=== PATIENT | male | born 1950 | race Caucasian/White ===

== ENCOUNTER → 2020-12-26 | Outpatient (CLI) | payer OTHER ==
[~2020-12-26] MED LIST: ALBUTEROL SULFATE 0.083% 2.5 MG/3 ML INH IH ONE
== END | disposition home or self-care (01) ==
LOC: RESP 12:18
PROVIDERS: ATTEND Internal Medicine Pulmonary Disease
DX: J44.9 Chronic obstructive pulmonary disease, unspecified (principal)
CPT/HCPCS: 94060; 94727; 94729

== ENCOUNTER → 2021-01-31 | Outpatient (CLI) | payer OTHER ==
[2021-01-31 10:23] LABS: BASOPHILS % (AUTO) 0.8 % (0.0-5.0); EOSINOPHILS % (AUTO) 4.8 % (0.0-8.0); HEMATOCRIT 43.7 % (42-54); LYMPHOCYTES % (AUTO) 19.7 % (21.0-51.0); MEAN CORPUSCULAR HEMOGLOBIN 27.9 pg (27.0-33.0); MEAN CORPUSCULAR HGB CONC 29.1 g/dL (32.0-36.0); MEAN CORPUSCULAR VOLUME 95.8 fL (79-99); MONOCYTES % (AUTO) 7.7 % (3.0-13.0); NEUTROPHILS % (AUTO) 66.6 % (40.0-77.0); PLATELET COUNT (AUTO) 151 K/uL (130-400); RED BLOOD CELL COUNT(AUTO) 4.56 MIL/uL (4.50-6.20); RED CELL DISTRIBUTION WIDTH 15.6 % (11.0-15.5); WHITE BLOOD COUNT (AUTO) 7.7 K/uL (4.8-10.8)
[2021-01-31 10:37] LABS: ALBUMIN 3.3 g/dL (3.5-5.0); BILIRUBIN,TOTAL 0.3 mg/dL (0.2-1.0); CREATININE 0.9 mg/dL (0.5-1.5); TOTAL PROTEIN, SERUM 7.1 g/dL (6.0-8.3)
[2021-01-31 10:58] LABS: POTASSIUM 6.3 mmol/L (3.5-5.1)
== END | disposition home or self-care (01) ==
LOC: LAB 08:23
PROVIDERS: ATTEND Internal Medicine Gastroenterology
DX: R10.13 Epigastric pain (principal); D50.8 Other iron deficiency anemias
CPT/HCPCS: 36415; 80053; 82150; 83690; 85025

== ENCOUNTER 2021-02-04 17:31 | Emergency (ER) | payer OTHER ==
[~2021-02-04] VITALS: Ht 177.8 cm; Wt 59.0 kg
[2021-02-04 17:32] VITALS: BP 124/77
[2021-02-04 18:35] LABS: BASOPHILS % (AUTO) 0.6 % (0.0-5.0); EOSINOPHILS % (AUTO) 3.5 % (0.0-8.0); HEMATOCRIT 38.2 % (42-54); LYMPHOCYTES % (AUTO) 20.6 % (21.0-51.0); MEAN CORPUSCULAR HEMOGLOBIN 27.9 pg (27.0-33.0); MEAN CORPUSCULAR HGB CONC 30.6 g/dL (32.0-36.0); MONOCYTES % (AUTO) 7.5 % (3.0-13.0); NEUTROPHILS % (AUTO) 67.5 % (40.0-77.0); PLATELET COUNT (AUTO) 153 K/uL (130-400); RED CELL DISTRIBUTION WIDTH 15.8 % (11.0-15.5); WHITE BLOOD COUNT (AUTO) 7.8 K/uL (4.8-10.8)
[2021-02-04 18:51] LABS: CARBON DIOXIDE 38 mmol/L (21-32); CHLORIDE 103 mmol/L (101-111); CREATININE 0.8 mg/dL (0.5-1.5); GLOMERULAR FILTR. RATE CALC 101 mL/min (>60); GLUCOSE,RANDOM 96 mg/dL (70-105); POTASSIUM 4.7 mmol/L (3.5-5.1); SODIUM SERUM 144 mmol/L (136-145); UREA NITROGEN, BLOOD 21 mg/dL (7-18)
[2021-02-04 19:03] LABS: ALANINE AMINOTRANSFERASE 19 U/L (12-78); ALBUMIN 3.3 g/dL (3.5-5.0); ASPARTATE AMINOTRANSFERASE 19 U/L (10-37); BILIRUBIN,TOTAL 0.3 mg/dL (0.2-1.0); CREATINE KINASE, TOTAL 76 U/L (21-232); MYOGLOBIN 46 ng/mL (10-92); TOTAL PROTEIN, SERUM 7.1 g/dL (6.0-8.3); TROPONIN I < 0.04 ng/mL (0.00-0.06)
[2021-02-04 19:46] VITALS: BP 129/73
== END 2021-02-04 20:15 | disposition home or self-care (01) ==
LOC: EDH 17:31
DX: D64.9 Anemia, unspecified (principal); R79.89 Other specified abnormal findings of blood chemistry; E11.9 Type 2 diabetes mellitus without complications; J44.9 Chronic obstructive pulmonary disease, unspecified; K21.9 Gastro-esophageal reflux disease without esophagitis; Z98.890 Other specified postprocedural states; Z85.828 Personal history of other malignant neoplasm of skin
CPT/HCPCS: 36415; 80053; 82550; 83735; 83874; 84484; 85025; 93005

== ENCOUNTER → 2021-02-26 | Outpatient (CLI) | payer OTHER ==
[2021-02-26 10:22] LABS: EOSINOPHILS % (AUTO) 5.4 % (0.0-8.0); HEMATOCRIT 39.6 % (42-54); MEAN CORPUSCULAR HEMOGLOBIN 27.3 pg (27.0-33.0); MEAN CORPUSCULAR VOLUME 94.1 fL (79-99); MONOCYTES % (AUTO) 7.3 % (3.0-13.0); NEUTROPHILS % (AUTO) 65.9 % (40.0-77.0); PLATELET COUNT (AUTO) 187 K/uL (130-400); RED BLOOD CELL COUNT(AUTO) 4.21 MIL/uL (4.50-6.20); RED CELL DISTRIBUTION WIDTH 15.7 % (11.0-15.5)
[2021-02-26 10:47] LABS: ALBUMIN 3.1 g/dL (3.5-5.0); BILIRUBIN,TOTAL 0.3 mg/dL (0.2-1.0); CREATININE 0.9 mg/dL (0.5-1.5); POTASSIUM 5.7 mmol/L (3.5-5.1)
== END | disposition home or self-care (01) ==
LOC: LAB 08:25
PROVIDERS: ATTEND Internal Medicine Gastroenterology
DX: R10.13 Epigastric pain (principal)
CPT/HCPCS: 36415; 80053; 82150; 83690; 85025

== ENCOUNTER → 2021-03-05 | Outpatient (CLI) | payer OTHER | END | disposition home or self-care (01) | LOC: LAB 15:47 | PROVIDERS: ATTEND Internal Medicine Gastroenterology | DX: K76.89 Other specified diseases of liver (principal) | CPT/HCPCS: 36415; 86682; 86753 ==